=== PATIENT | female | born 2000 | race Caucasian/White ===

== ENCOUNTER 2022-10-30 07:47 | Emergency (ER) | payer BC, OTHER ==
[2022-10-30 07:55] VITALS: RESP 18
[2022-10-30] MEDS ORDERED: SODIUM CHLORIDE 0.9% 1,000 ML IV STA (08:07)
[2022-10-30] MEDS ORDERED: LIDOCAINE 2% GLYDO JELLY 11 ML APPL PO ONE (08:13)
[2022-10-30] MEDS ORDERED: ACETAMINOPHEN TAB 500 MG TAB PO STA (08:14)
--- NOTE | 2022-10-30 08:22 | ED ---
General Adult HPI - General Chief complaint: Dental/Oral Stated complaint: pain L side Face,H blood sugar,14 WEEKS preg Time Seen by Provider: 10/30/22 07:58 Source: patient, RN notes reviewed Mode of arrival: ambulatory Limitations: no limitations - History of Present Illness Initial comments: Patient is a 22-year-old female who presents emergency Department complaining of dental pain. She is approximately 14 weeks . Has a history of type 1 diabetes on an insulin pump. Sugars have been running in the low 200s. Denies any abdominal pain, nausea, vomiting. Denies any chest pain or shortness of breath. Denies any fevers. Has been having dental pain for the last 2 weeks on the left upper and lower jaw with a history of poor dentition. There is no she is having shooting pains along the left side of her face causing a headache that poorly responsive to Tylenol. She presents for further evaluation at this time. Does follow up with an MEAT PRODUCTS DEMONSTRATOR. Has no other significant complaints at this time. Denies any visual changes. Denies any numbness or weakness. Presents for further evaluation. - Related Data Home Medications Medication Instructions Recorded Confirmed Insulin Aspart (For Pump) [NovoLOG 0.01 unit SQ-PUMP CONTINUOUS 05/26/22 05/26/22 (For Pump)] Previous Rx's Medication Instructions Recorded HYDROcodone/APAP 5-325MG [[place] 1 tab PO Q6HR PRN 3 Days #12 tab 05/30/22 5-325] Acetaminophen Tab [Tylenol] 325 mg PO Q6HR PRN tab 05/31/22 Amoxic-Pot Clav 875-125Mg 1 tab PO Q12HR 10 Days #10 tab 05/31/22 [Augmentin 875-125] Famotidine [Pepcid] 20 mg PO DAILY 10 Days #20 tablet 05/31/22 Ondansetron [Zofran] 4 mg PO Q8HR PRN 3 Days #6 tab 05/31/22 Amoxic-Pot Clav 875-125Mg 1 tab PO Q12HR 7 Days #14 tab 10/30/22 [Augmentin 875-125] Allergies Allergy/AdvReac Type Severity Reaction Status Date / Time latex Allergy Rash/Hives Verified 10/30/22 07:55 Review of Systems ROS Statement: Those systems with pertinent positive or pertinent negative responses have been documented in the HPI. Review of Systems: CONST: Denies fever EYES: Denies blurry vision ENT: Endorses dental pain C/V: Denies Chest pain RESP: Denies shortness of breath GI: Denies abdominal pain : Denies dysuria SKIN: Denies rash. MSK: Denies joint pain. NEURO: Denies headache ROS Other: All systems not noted in ROS Statement are negative. Past Medical History Past Medical History: Diabetes Mellitus History of Any Multi-Drug Resistant Organisms: None Reported Past Surgical History: No Surgical Hx Reported Past Anesthesia/Blood Transfusion Reactions: No Reported Reaction Past Psychological History: No Psychological Hx Reported Smoking Status: Light tobacco smoker, Vaper Past Alcohol Use History: None Reported Past Drug Use History: Marijuana - Past Family History Mother Family Medical History: No Reported History Father Family Medical History: Congestive Heart Failure (CHF), Coronary Artery Disease (CAD) General Exam - General Exam Comments Initial Comments: General: Appears in no acute distress. HEAD: Normal with no signs of head trauma. EYES: PERRLA, EOMI, conjunctiva normal, no discharge. ENT: Hearing grossly intact. Relatively normal oropharynx. Some tenderness over the left upper and lower teeth with some mild erythema of the gumline. No obvious cheek edema, tenderness edema. Uvula is midline. No posterior oropharyngeal edema or erythema. No stridor auscultated. Tolerating oral secretions. No tenderness to palpation of the left face, his pain seems to radiate from the teeth. Bilateral tympanic membranes within normal limits. RESPIRATORY: Clear breath sounds bilaterally. No wheezes, rales, or rhonchi. C/V: Regular rate and rhythm. S1 and S2 auscultated, peripheral pulses 2+ and intact throughout ABD: Abd is soft, nontender, nondistended EXT: Normal range of motion, no obvious deformity SKIN: No rashes or lesions observed on exposed skin. NEURO: Alert and oriented 4. No focal sensory strength deficits. Cranial nerves II through XII are intact. Limitations: no limitations Course Vital Signs 10/30/22 10/30/22 07:49 08:55 Temperature 97.8 F Pulse Rate 91 84 Respiratory 18 18 Rate Blood Pressure 135/91 127/85 O2 Sat by Pulse 100 100 Oximetry Medical Decision Making - Medical Decision Making Was pt. sent in by a medical professional or institution (, PA, FUNERAL DIRECTOR/EMBALMER/OWNER, urgent care, hospital, or prison...) When possible be specific @ -No Did you speak to anyone other than the patient for history (EMS, parent, family, police, friend...)? What history was obtained from this source @ -No Did you review nursing and triage notes (agree or disagree)? Why? @ -I reviewed and agree with nursing and triage notes Were old charts reviewed (outside hosp., previous admission, EMS record, old EKG, old radiological studies, urgent care reports/EKG's, prison records)? Report findings @ -No old charts were reviewed Differential Diagnosis (chest pain, altered mental status, abdominal pain women, abdominal pain men, vaginal bleeding, weakness, fever, dyspnea, syncope, heada di, dizziness, GI bleed, back pain, seizure, CVA, palpatations, mental health, musculoskeletal)? @ -Toothache, dentalgia, dental pain, trigeminal neuralgia, dental infection, ear infection, viral syndrome. This list is not all inclusive. EKG interpreted by me (3pts min.). @ -None done X-rays interpreted by me (1pt min.). @ -None done CT interpreted by me (1pt min.). @ -None done U/S interpreted by me (1pt. min.). @ -None done What testing was considered but not performed or refused? (CT, X-rays, U/S, l abs)? Why? @ -None What meds were considered but not given or refused? Why? @ -Considered steroids however to not administered due to patient being . Preg Class C. Did you discuss the management of the patient with other professionals (professionals i.e. , PA, FUNERAL DIRECTOR/EMBALMER/OWNER, lab, RT, psych nurse, social insurance adviser, larder cook, te acher, patrol community service officer, top case assembler)? Give summary @ -No Was smoking cessation discussed for >3mins.? @ -No Was critical care preformed (if so, how long)? @ -No Were there social determinants of health that impacted care today? How? (Homelessness, low income, unemployed, alcoholism, drug addiction, transportation, low edu. Level, literacy, decrease access to med. care, long term, rehab)? @ -No Was there de-escalation of care discussed even if they declined (Discuss DNR or withdrawal of care, Hospice)? DNR status @ -No What co-morbidities impacted this encounter? (DM, HTN, Smoking, COPD, CAD, Cancer, CVA, ARF, Chemo, Hep., AIDS, mental health diagnosis, sleep apnea, morbid obesity)? @ -None Was patient admitted / discharged? Hospital course, mention meds given and rou te, prescriptions, significant lab abnormalities, going to OR and other pertinent info. @ -Based on the patient's presentation and physical exam, she is a type I diabetic approximate 14 weeks who presents emergency Department complaining of 2 weeks of dental pain with radiating nerve pain on the left side of her face. Discussed with her class ratings for steroids as well as opiate pain medications. She expressed understanding. We will start with viscous lidocaine, 1 L fluid bolus, Tylenol. She will likely be placed on antibiotics. Recommend recheck baseline labs that she is at risk for worsening infections due to her hyperglycemia and insulin-dependent diabetes. She was in agreement this plan. She has no systemic signs of infection. Currently afebrile. She does use vitamins as well as follow up with [facility]. Patient's labs are within normal limits. She is not in DKA. Mild hyperglycemia. On reevaluation, patient is some improvement. However is requesting additional pain medication. I did discuss with her use of opiate medications in sending a class C. We discussed risks and benefits, she agreed and would like a one-time dose of Tylenol 3 which will be administered. Recommended she follow up with a dentist as well as her MEAT PRODUCTS DEMONSTRATOR. Strict return precautions discussed. She'll be placed on Augmentin outpatient. I will provide the patient with a prescription for Augmentin. I instructed the patient to follow up with their PCP in the next 1-3 days. I provided contact information for follow up with dentist. I explained that the patient should return to the emergency department if they experience any worsening symptoms. Strict return precautions were discussed with the patient. The patient expressed understanding of these instructions. I answered all questions that the patient had. The patient was discharged home in good condition with their prescriptions and follow up information. Undiagnosed new problem with uncertain prognosis? @ -No Drug Therapy requiring intensive monitoring for toxicity (Heparin, Nitro, Insulin, Cardizem)? @ -No Were any procedures done? @ -No Diagnosis/symptom? @ -Dentalgia, , hyperglycemia in the setting of type 1 diabetes Acute, or Chronic, or Acute on Chronic? @ -Acute Uncomplicated (without systemic symptoms) or Complicated (systemic symptoms)? @ -Complicated Side effects of treatment? @ -none Exacerbation, Progression, or Severe Exacerbation] @ -no Poses a threat to life or bodily function? @ -no - Lab Data Result diagrams: 10/30/22 08:25 10/30/22 08:25 Lab Results 10/30/22 10/30/22 Range/Units 08:25 08:25 WBC 8.5 (3.8-10.6) k/uL RBC 3.78 L (3.80-5.40) m/uL Hgb 11.6 (11.4-16.0) gm/dL Hct 33.0 L (34.0-46.0) % MCV 87.4 (80.0-100.0) fL MCH 30.7 (25.0-35.0) pg MCHC 35.2 (31.0-37.0) g/dL RDW 12.7 (11.5-15.5) % Plt Count 291 (150-450) k/uL MPV 7.6 Neutrophils % 74 % Lymphocytes % 20 % Monocytes % 3 % Eosinophils % 2 % Basophils % 0 % Neutrophils # 6.3 (1.3-7.7) k/uL Lymphocytes # 1.7 (1.0-4.8) k/uL Monocytes # 0.2 (0-1.0) k/uL Eosinophils # 0.2 (0-0.7) k/uL Basophils # 0.0 (0-0.2) k/uL Sodium 133 L (137-145) mmol/L Potassium 4.6 (3.5-5.1) mmol/L Chloride 102 (98-107) mmol/L Carbon Dioxide 21 L (22-30) mmol/L Anion Gap 10 mmol/L BUN 13 (7-17) mg/dL Creatinine 0.48 L (0.52-1.04) mg/dL Est GFR (CKD-EPI)AfAm >90 (>60 ml/min/1.73 sqM) Est GFR (CKD-EPI)NonAf >90 (>60 ml/min/1.73 sqM) Glucose 209 H (74-99) mg/dL Calcium 9.2 (8.4-10.2) mg/dL Disposition Clinical Impression: Dentalgia, Hyperglycemia Disposition: HOME SELF-CARE Condition: Good Instructions (If sedation given, give patient instructions): Toothache (ED) Prescriptions: Amoxic-Pot Clav 875-125Mg [Augmentin 875-125] 1 tab PO Q12HR 7 Days #14 tab Is patient prescribed a controlled substance at d/c from ED?: No Referrals: None,Stated [Primary Care Provider] - 1-2 days Chucky Henriquez DDS [STAFF PHYSICIAN] - 1-2 days Time of Disposition: 09:21
[2022-10-30 08:38] LABS: Basophils % (A) 0 %; Eosinophils # (A) 0.2 k/uL (0-0.7); Eosinophils % (A) 2 %; HGB 11.6 gm/dL (11.4-16.0); Lymphocytes # (A) 1.7 k/uL (1.0-4.8); Lymphocytes % (A) 20 %; MCH 30.7 pg (25.0-35.0); MCHC 35.2 g/dL (31.0-37.0); MCV 87.4 fL (80.0-100.0); Mean Platelet Volume 7.6; Monocytes # (A) 0.2 k/uL (0-1.0); Monocytes % (A) 3 %; Neutrophils # (A) 6.3 k/uL (1.3-7.7); Neutrophils % (A) 74 %; Platelet Count 291 k/uL (150-450); RBC 3.78 m/uL (3.80-5.40); RDW 12.7 % (11.5-15.5); WBC 8.5 k/uL (3.8-10.6)
[2022-10-30 08:46] LABS: African American GFR (CKD) >90 (>60 ml/min/1.73 sqM); Anion Gap 10 mmol/L; Blood Urea Nitrogen 13 mg/dL (7-17); Calcium 9.2 mg/dL (8.4-10.2); Carbon Dioxide 21 mmol/L (22-30); Chloride 102 mmol/L (98-107); Glucose 209 mg/dL (74-99); Non-African American GFR(CKD) >90 (>60 ml/min/1.73 sqM); Potassium 4.6 mmol/L (3.5-5.1); Sodium 133 mmol/L (137-145)
[2022-10-30] MEDS ORDERED: Acetaminophen-Codeine 300-30mg TAB PO STA (09:25)
[2022-10-30] MEDS ORDERED: AMOXIC-POT CLAV 875-125MG 1 EACH TAB PO STA (09:26)
[2022-10-30 10:05] VITALS: BP 142/95; PULSE 87; TEMP 98.7
== END 2022-10-30 10:06 | disposition home or self-care (01) ==
LOC: EC 07:47
DX: O26.892 Other specified pregnancy related conditions, second trimester (principal); O24.012 Pre-existing type 1 diabetes mellitus, in pregnancy, second trimester; O99.334 Smoking (tobacco) complicating childbirth; E10.65 Type 1 diabetes mellitus with hyperglycemia; K08.89 Other specified disorders of teeth and supporting structures; F12.90 Cannabis use, unspecified, uncomplicated; F17.290 Nicotine dependence, other tobacco product, uncomplicated; Z91.040 Latex allergy status; Z79.4 Long term (current) use of insulin; Z3A.14 14 weeks gestation of pregnancy
CPT/HCPCS: 36415; 80048; 85025; 96360; 99283